=== PATIENT | female | born 1960 | race Caucasian/White ===

== ENCOUNTER → 2016-10-03 | Outpatient (CLI) | payer OTHER, MEDICAID ==
--- NOTE | 2016-10-03 17:59 | MR ---
MRI Lower Extremity, Left Ankle History: Left ankle pain. Sprain. Evaluate for ligament injury. ICD-10 Code S93.402A. Comparison: Radiograph February 16, 2016. Technique: MRI was performed of the left ankle using a 3.0 [employer] MRI system. Sagittal, coronal, and axial imaging was obtained with standard imaging sequences. Findings General: There is an old avulsion fracture at the inferoposterior margin of the lateral malleolus. Incomplete osseous bridging and minimal bone marrow edema. This would suggest fibrous union. No oth er findings for a current fracture. No evidence for an osteochondral defect of the talar dome or evangelist nt effusion. Ligaments: The anterior talofibular ligament is not well visualized. There is attenuation and poor visualization of the distal calcaneofibular ligament. The posterior talofibular ligament is intact. The anterior tibiofibular ligament is diminutive. The posterior tibiofibular ligament is unremarkab le. There is mild attenuation and irregularity of the deltoid ligament. Peroneal tendons: Abnormal signal intensity and attenuation in the peroneal longus tendon collateral to the peroneal tubercle. No significant fluid distention of the tendon sheath. The superior peron eal retinaculum is intact. Posterior medial tendons: Mild abnormal signal intensity is seen in the distal tibialis posterior te ndon, without attenuation. Anterior tendons: Unremarkable. Achilles tendon: Unremarkable. Plantar fascia: Mild edema is seen at the medial cord of the plantar fascia insertion of the calcane us, without attenuation. There is an enthesophyte, with no erosion or bone marrow edema. Impressions 1. 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 Mild chronic partial tear anterior tibiofibular ligament. Chronic partial tear deltoid ligament. 2. Mild tendinopathy and partial tear peroneal longus tendon distal to the peroneal tubercle. 3. Mild tendinopathy distal tibialis posterior tendon. 4. Mild plantar fasciitis. Small enthesophyte at the plantar insertion of the calcaneus.
== END ==
LOC: FIMAGING 16:08
PROVIDERS: ATTEND Orthopaedic Surgery
DX: S93.402A Sprain of unspecified ligament of left ankle, initial encounter (principal); X58.XXXA Exposure to other specified factors, initial encounter; M76.72 Peroneal tendinitis, left leg; M72.2 Plantar fascial fibromatosis

== ENCOUNTER → 2017-01-23 | Outpatient (CLI) | payer OTHER, MEDICAID | LOC: FIMAGING 14:06 | PROVIDERS: ATTEND Internal Medicine | DX: D25.1 Intramural leiomyoma of uterus (principal); Z90.721 Acquired absence of ovaries, unilateral | CPT/HCPCS: G0202 ==